=== PATIENT | female | born 1955 | race Caucasian/White ===

== ENCOUNTER 2023-12-05 09:23 | Day surgery (SDC) | payer MEDICARE ==
[2023-12-05] VITALS (18 sets, daily range): BP systolic 90–173; BP diastolic 67–116
[~2023-12-05] VITALS: Ht 167.6 cm; Wt 116.3 kg
[~2023-12-05 09:23] MED LIST: APHEN325 M1 PO; ASCORBIC ACID500 MG PO; DULO60 PO; Dyazide 37.5/251 EA PO; EUTHYROX50 MCG PO; METO50 PO; VITAMIN B12500 MCG PO; VITAMIN D310 MC4 PO
[2023-12-05] MEDS ORDERED: Tranexamic Acid 100 ML IV SCH (10:20)
[2023-12-05] MEDS ORDERED: OxyCODONE HCL 10 MG TABCR PO SCH (10:20)
[2023-12-05] MEDS ORDERED: Acetaminophen 500 MG Tab PO SCH ×2 (10:20→16:00)
[2023-12-05] MEDS ORDERED: Ropivacaine 0.5% HCl/Pf 123.125 MG,EPINEPHrine HCL 0.25 MG,Ketorolac Tromethamine 15 MG... INFIL SCH (10:20)
[2023-12-05] MEDS ORDERED: Chlorhexidine Mouth Care 15 ML UDC MT SCH (10:20)
[2023-12-05] MEDS ORDERED: Lactated Ringer's 1,000 ML IV SCH ×2 (10:20→11:15)
[2023-12-05] MEDS ORDERED: GABA300 PO (10:40)
[2023-12-05] MEDS ORDERED: CeFAZolin Sodium 2,000 MG in NS 100 ML IV SCH ×2 (10:45→20:30)
[2023-12-05] MEDS ORDERED: CeFAZolin Sodium 2,000 MG VIAL ONE (10:51)
[2023-12-05] MEDS ORDERED: propofoL 40 ML IV ONE ×2 (10:53→13:05)
[2023-12-05] MEDS ORDERED: FentaNYL Citrate 50 MCG/ML 2 ML Injection ONE (10:53)
[2023-12-05] MEDS ORDERED: Lidocaine HCl 2% 20 ML MDV ONE (10:54)
[2023-12-05] MEDS ORDERED: Magnesium Hydroxide Conc 10 ML UDC PO PRN (11:00)
--- NOTE | 2023-12-05 11:02 | NUR ---
History, Chart, Medications and Allergies reviewed before start of procedure. Pre-Op teaching done. Pt verbalizes understanding. Wheelchaired into Day Surgery
[2023-12-05] MEDS ORDERED: Promethazine HCl 25 MG Tab PO PRN (11:05)
[2023-12-05] MEDS ORDERED: Ondansetron HCl 2 MG / ML 2ML Vial IV PRN (11:05)
[2023-12-05] MEDS ORDERED: Metoclopramide HCl 5MG / ML 2ML Vial IV PRN (11:05)
[2023-12-05] MEDS ORDERED: OxyCODONE HCL 5 MG TAB PO PRN ×2 (11:05)
[2023-12-05] MEDS ORDERED: DiphenhydrAMINE HCL 25 MG Cap PO PRN (11:10)
[2023-12-05] MEDS ORDERED: Bisacodyl 10 MG Supp PR PRN (11:10)
[2023-12-05] MEDS ORDERED: HYDROmorphone HCl/Pf 1MG SYR IV PRN (11:10)
[2023-12-05] MEDS ORDERED: FLU VACC TS2024-25(6MOS UP)/PF 45 MCG/0.5 ML SYRINGE IM SCH (11:10)
--- NOTE | 2023-12-05 13:21 | NUR ---
12/05/23 1321 [place] SPINAL BLOCK COMPLETED BY UPON ENTRY TO OR. PATIENT TOLERATED WELL.
[2023-12-05] MEDS ORDERED: propofoL 20 ML IV ONE (13:49)
[2023-12-05] MEDS ORDERED: Ketorolac Tromethamine 15mg Vial IV SCH (18:00)
--- NOTE | 2023-12-05 19:38 | NUR ---
SHIFT SUMMARY POD0 L TKA, A/OX4, VSS, TOLERATING PO, NO PT TODAY D/T BEING NUMB STILL, HAS NOT VOIDED POST OP BUT WAS STRAIGHT CATHED IN PACU AND NOC RN IS AWARE. NO ACUTE EVENTS THIS SHIFT, CALL LIGHT IN REACH.
[2023-12-05] MEDS ORDERED: Docusate Sodium 100 MG Cap PO SCH (21:00)
[2023-12-05] MEDS ORDERED: Gabapentin 300 MG Cap PO SCH (21:00)
[2023-12-06 04:40] VITALS: BP 142/94
[2023-12-06 04:42] LABS: BASOPHILS ABSOLUTE AUTO 0.03 K/mm3 (0.00-0.23); BASOPHILS PERCENT AUTO 0 % (0-2); EOSINOPHILS ABSOLUTE AUTO 0.06 K/mm3 (0.00-0.68); EOSINOPHILS PERCENT AUTO 1 % (0-6); Hemoglobin 13.1 g/dL (11.5-16.0); IMMATURE GRAN ABSOLUTE AUTO 0.04 K/mm3 (0.00-0.10); IMMATURE GRAN PERCENT AUTO 0 % (0-1); LYMPHOCYTES ABSOLUTE AUTO 1.23 K/mm3 (0.84-5.20); LYMPHOCYTES PERCENT AUTO 12 % (21-46); MONOCYTES ABSOLUTE AUTO 0.66 K/mm3 (0.16-1.47); MONOCYTES PERCENT AUTO 7 % (4-13); Mean Corpuscular HGB 30.8 pg (26.0-34.0); Mean Corpuscular HGB Conc 32.8 g/dL (31.5-36.5); Mean Corpuscular Volume 94 fL (80-100); Mean Platelet Volume 11.4 fL (9.1-12.4); NEUTROPHILS ABSOLUTE AUTO 8.08 K/mm3 (1.96-9.15); NEUTROPHILS PERCENT AUTO 80 % (41-73); Platelet Count 217 K/mm3 (150-400); RDW Coefficient Variation 12.9 % (11.7-14.2); RDW Standard Deviation 44.6 fL (35.1-46.3); Red Blood Cell Count 4.26 M/mm3 (3.80-5.20)
--- NOTE | 2023-12-06 04:52 | NUR ---
SHIFT SUMMARY POD 1 L TKA. NO ACUTE CHANGES OVERNIGHT. VSS. TOLERATING ORALS. VOIDING. PT AMBULATES USING FWW c GB & 1 PERSON ASSIST. PT REPORTS MIN TINGLING TO LLE. PT REPORTS PAIN TOLERABLE, MEDICATED PER EMAR. ANTICIPATED TO WORK WITH PHYSCIAL THERAPY AND DISCHARGE LATER TODAY. CALL LIGHT IN REACH, PT SITTING IN CHAIR, WILL REPORT TO DAY RN.
[2023-12-06 05:03] LABS: Bun/Creatinine Ratio 17.1 (12.0-20.0); Calcium, Blood 9.3 mg/dL (8.5-10.1); Creatinine, Blood 0.64 mg/dL (0.40-1.00); Potassium, Blood 3.5 mmol/L (3.5-5.5)
[2023-12-06] MEDS ORDERED: Levothyroxine Sodium 0.05 MG Tab PO SCH (06:00)
[2023-12-06 07:27] VITALS: BP 138/92
[2023-12-06] MEDS ORDERED: ELIQUIS2.5 MG PO (07:44)
[2023-12-06] MEDS ORDERED: Apixaban 5 MG Tab PO SCH (09:00)
[2023-12-06] MEDS ORDERED: Cholecalciferol 400 unit Tab PO SCH (09:00)
[2023-12-06] MEDS ORDERED: Triamter/HCthiazide 37.5/25 MG 1 Tab PO SCH (09:00)
[2023-12-06] MEDS ORDERED: DULoxetine HCL 60 MG Capsule DR PO SCH (09:00)
[2023-12-06] MEDS ORDERED: Ascorbic Acid 500 MG Tab PO SCH (09:00)
[2023-12-06] MEDS ORDERED: Cyanocobalamin 500 MCG Tab PO SCH (09:00)
[2023-12-06] MEDS ORDERED: Metoprolol Tartrate 50 MG Tab PO SCH (09:00)
--- NOTE | 2023-12-06 13:20 | NUR ---
DISCHARGE PT WORKED w/ THERAPY. INCREASED PAIN, BUT REPORTS BETTER w/ 2 OXY THAN 1. EATING & DRINKING. DRSGS & POLAR PACK SENT w/ PT. ESCORTED OUT VIA W/C.
== END 2023-12-06 13:26 | disposition home or self-care (01) ==
LOC: ORSCMMR 09:23 → ORD 11:00 → ORSCMMR 11:00 → ORD 12:30 → SURS 15:15 → ORSCMMR 12-06 13:26 → SURS 12-06 13:26
PROVIDERS: Orthopaedic Surgery
PROC: 0SRD0JA Replacement of Left Knee Joint with Synthetic Substitute, Uncemented, Open Approach (ICD-10-PCS; principal; 2023-12-05 11:00)
DX: M17.12 Unilateral primary osteoarthritis, left knee (principal); E66.01 Morbid (severe) obesity due to excess calories; Z68.41 Body mass index [BMI] 40.0-44.9, adult; I10 Essential (primary) hypertension; K21.9 Gastro-esophageal reflux disease without esophagitis; E03.9 Hypothyroidism, unspecified; Z79.899 Other long term (current) drug therapy
CPT/HCPCS: 36415; 73560-LT; 80048; 84132; 85025; 97110; 97116; 97161; 97530; A9270; C1776; J0171; J0690; J0735; J1885; J2405; J2704; J2795; J3010; J7120

== ENCOUNTER 2023-12-19 15:39 | Emergency (ER) | payer MEDICARE ==
[~2023-12-19] VITALS: Ht 165.1 cm; Wt 102.1 kg
[~2023-12-19 15:39] MED LIST changes: +ELIQUIS2.5 MG PO; +GABA300 PO
[2023-12-19 17:59] LABS: BASOPHILS ABSOLUTE AUTO 0.05 K/mm3 (0.00-0.23); BASOPHILS PERCENT AUTO 1 % (0-2); EOSINOPHILS ABSOLUTE AUTO 0.15 K/mm3 (0.00-0.68); EOSINOPHILS PERCENT AUTO 2 % (0-6); Hematocrit 39.4 % (33.0-51.0); Hemoglobin 13.3 g/dL (11.5-16.0); IMMATURE GRAN ABSOLUTE AUTO 0.02 K/mm3 (0.00-0.10); IMMATURE GRAN PERCENT AUTO 0 % (0-1); LYMPHOCYTES ABSOLUTE AUTO 2.22 K/mm3 (0.84-5.20); LYMPHOCYTES PERCENT AUTO 25 % (21-46); MONOCYTES ABSOLUTE AUTO 0.76 K/mm3 (0.16-1.47); MONOCYTES PERCENT AUTO 9 % (4-13); Mean Corpuscular HGB 30.5 pg (26.0-34.0); Mean Corpuscular HGB Conc 33.8 g/dL (31.5-36.5); Mean Corpuscular Volume 90 fL (80-100); Mean Platelet Volume 11.3 fL (9.1-12.4); NEUTROPHILS ABSOLUTE AUTO 5.72 K/mm3 (1.96-9.15); NEUTROPHILS PERCENT AUTO 64 % (41-73); Platelet Count 381 K/mm3 (150-400); RDW Coefficient Variation 12.9 % (11.7-14.2); RDW Standard Deviation 42.6 fL (35.1-46.3); Red Blood Cell Count 4.36 M/mm3 (3.80-5.20); White Blood Cell Count 8.92 K/mm3 (4.00-11.30)
[2023-12-19] MEDS ORDERED: Acetaminophen 500 MG Tab PO ONE (18:05)
[2023-12-19 18:33] LABS: Albumin, Blood 3.5 g/dL (3.4-5.0); Albumin/Globulin Ratio 0.8 (0.8-1.8); Bilirubin, Total 0.4 mg/dL (0.1-1.0); Bun/Creatinine Ratio 22.9 (12.0-20.0); Calcium, Blood 9.7 mg/dL (8.5-10.1); Creatinine, Blood 0.7 mg/dL (0.40-1.00); Globulin, Blood 4.3 g/dL (2.2-4.0); Potassium, Blood 3.7 mmol/L (3.5-5.5); Total Protein, Blood 7.8 g/dL (6.4-8.2)
[2023-12-19] MEDS ORDERED: FentaNYL Citrate 50 MCG/ML 2 ML Injection IV ONE (21:10)
[2023-12-19] MEDS ORDERED: Ondansetron HCl 2 MG / ML 2ML Vial IV ONE (21:10)
[2023-12-19 22:00] VITALS: BP 129/79
== END 2023-12-19 22:05 | disposition home or self-care (01) ==
LOC: ER 15:39
PROVIDERS: Physician Assistant
DX: G89.18 Other acute postprocedural pain (principal); M25.562 Pain in left knee; Z79.899 Other long term (current) drug therapy; Z88.2 Allergy status to sulfonamides; Z91.048 Other nonmedicinal substance allergy status
CPT/HCPCS: 73562-LT; 80053; 85025; 96374; 96375; 99284-25; A9270; J2405; J3010

== ENCOUNTER → 2024-04-10 | Outpatient (CLI) | payer MEDICARE | LOC: LAB SHORT 17:13 → LAB 17:13 | DX: R30.0 Dysuria (principal) | CPT/HCPCS: 87086 ==